=== PATIENT | female | born 1935 | race Caucasian/White ===

== ENCOUNTER 2019-12-26 13:55 | Emergency (ER) | payer OTHER ==
[2019-12-26 14:35] LABS: CHLORIDE,CL 102 mmol/L (98-107); SODIUM,NA 143 mmol/L (136-145)
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
== END 2019-12-26 16:36 | disposition home or self-care (01) ==
LOC: LL.ED 13:55
DX: Z04.1 Encounter for examination and observation following transport accident (principal); V43.52XA Car driver injured in collision with other type car in traffic accident, initial encounter
CPT/HCPCS: 36415; 70450; 71046; 80053; 85025; 85610; 99284-25

== ENCOUNTER 2021-03-02 08:09 | Observation (INO) | payer MEDICARE, BC ==
[2021-03-02 09:03] LABS: PTT,PARTIAL THROMBOPLSTIN TIME 30.3 SEC (24.5-32.8)
[2021-03-02] MEDS ORDERED: Meclizine 25 MG Tab PO ONE (09:04)
[2021-03-02] MEDS ORDERED: Ondansetron 4 MG/2 ML SDV IVPUSH ONE (09:05)
[2021-03-02 09:13] LABS: CHLORIDE,CL 105 mmol/L (98-107); SODIUM,NA 141 mmol/L (136-145)
--- NOTE | 2021-03-02 09:17 | EDM.PDOC ---
ED HPI GENERAL MEDICAL PROBLEM - General Chief Complaint: Neuro Symptoms/Deficits Stated Complaint: face, arm numbness Time Seen by Provider: 03/02/21 08:35 Source of Information: Reports: Patient History Limitations: Reports: No Limitations - History of Present Illness INITIAL COMMENTS - FREE TEXT/NARRATIVE: Pt. presents to ER with complaints of L sided upper extremity paresthesia and L sided facial paresthesia, shortness of breath, and vertigo. Pt. states that she felt well yesterday. She states that she went to [place] at 10:30 last night and felt fine. She states that she woke up at about 0200 this AM and noticed the facial numbness. She woke up this AM at 6:15 at which time she was experiencing vertigo and shortness of breath. No chest pain. Denies any increased peripheral edema. Pt. has a history of atrial fib and is anticoagulated with heparin. Rate is controlled with diltiazem CD 180mg daily. She is also on toprol XL 100mg once daily and has a history of HTN. Pt. is followed by Dr. Guthrie at cardiology and saw him recently for her atrial fib. They discussed cardioversion, but given her lengthy history of a-fib, she does not wish to undergo cardioversion. 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 Stroke code was called by nursing on arrival to ER. She had no pronator drift, speech difficulty, or evidence of L sided weakness/facial droop on arrival to ER. Pt. denies any recent illness. No nausea or vomiting. No recent upper respiratory symptoms. Pt. states that she was feeling fine and was active yesterday. She was not experiencing any of the above symptoms at all. Onset: Today Onset Date: 03/02/21 Onset Time: 02:00 Location: Reports: Face, Upper Extremity, Left Associated Symptoms: Reports: Shortness of Breath. Denies: Diaphoresis, Fever/Chills, Nausea/Vomiting - Related Data Allergies Allergy/AdvReac Type Severity Reaction Status Date / Time lisinopril Allergy Mild Cough Verified 03/02/21 08:59 amitriptyline Allergy Chest Verified 03/02/21 08:59 Tightness ciprofloxacin Allergy Rash Verified 03/02/21 08:59 sulfamethoxazole Allergy Rash Verified 03/02/21 08:59 [From Bactrim] trimethoprim [From Bactrim] Allergy Rash Verified 03/02/21 08:59 Home Meds: Home Meds Amoxicillin 250 mg PO DAILY 03/02/21 [History] Diltiazem HCl [Diltiazem 24Hr Cd] 180 mg PO DAILY 03/02/21 [History] Furosemide 20 mg PO DAILY 03/02/21 [History] Losartan Potassium 25 mg PO DAILY 03/02/21 [History] Metoprolol Succinate 100 mg PO DAILY 03/02/21 [History] Potassium Chloride 10 meq PO BID 03/02/21 [History] Warfarin [Coumadin] 2.5 mg PO SUTUTHSA@03/02/21 [History] Warfarin [Coumadin] 5 mg PO MOWEFR@03/02/21 [History] Past Medical History Cardiovascular History: Reports: Afib, CAD, Heart Failure (EF 45-50% Stress test last year showed inferolateral defect.), Hypertension, SOB on Exertion, Other (See Below) (History of mitral and aortic valve insufficiency.). Denies: Aneurysm, Angina, Arrhythmia, Automatic Implantable Cardioverter Defibrillators, Cardiomyopathy, Heart Valve Replacement, Pacemaker, PTCA, Stents, Syncope Respiratory History: Reports: None Gastrointestinal History: Reports: Cholelithiasis (S/p cholecystectomy), GERD. 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 3 years ago.) Hematologic History: Reports: Anticoagulation Therapy, B12 Deficiency. Denies: Anemia Immunologic History: Reports: None, Other (See Below) (Had J and J covid vaccination) ED ROS GENERAL - Review of Systems Review Of Systems: See Below Constitutional: Reports: No Symptoms. Denies: Fever, Chills, Malaise HEENT: Reports: Vertigo. Denies: Nosebleed, Vision Change Respiratory: Reports: Shortness of Breath Cardiovascular: Reports: Dyspnea on Exertion. Denies: Chest Pain, Edema, Orthopnea, Palpitations, PND, Syncope Endocrine: Reports: No Symptoms GI/Abdominal: Reports: No Symptoms. Denies: Black Stool, Bloody Stool, Constipation, Diarrhea, Hematemesis, Hematochezia, Melena, Nausea, Vomiting : Reports: No Symptoms Musculoskeletal: Reports: No Symptoms Skin: Reports: No Symptoms Neurological: Reports: Paresthesia (L upper extremity and L sided facial paresthesia) Psychiatric: Reports: No Symptoms Hematologic/Lymphatic: Reports: No Symptoms Immunologic: Reports: No Symptoms ED EXAM, GENERAL - Physical Exam Exam: See Below Exam Limited By: No Limitations General Appearance: Alert, WD/WN, No Apparent Distress Eye Exam: Bilateral Eye: EOMI, Nystagmus, PERRL Ears: Normal External Exam, Hearing Grossly Normal, Normal TMs, Other (both canals obstructed with cerumen) Nose: Normal Inspection, Normal Mucosa, No Blood Throat/Mouth: Normal Inspection, Normal Lips, Normal Teeth, Normal Gums, Normal Oropharynx, Normal Voice, No Airway Compromise Head: Atraumatic, Normocephalic Neck: Normal Inspection, Supple, Non-Tender, Full Range of Motion Respiratory/Chest: No Respiratory Distress, Lungs Clear, Normal Breath Sounds, No Accessory Muscle Use, Chest Non-Tender Cardiovascular: Normal Peripheral Pulses, No Edema, No JVD, No Murmur, Irregularly Irregular Peripheral Pulses: 4+: Radial (L) GI/Abdominal: Soft, Non-Tender, No Organomegaly, No Distention, No Mass (Female) Exam: Deferred Rectal (Female) Exam: Deferred Back Exam: Normal Inspection, Full Range of Motion Extremities: Normal Inspection, Normal Range of Motion, Non-Tender, No Pedal Edema, Normal Capillary Refill Neurological: Alert, Oriented, CN II-XII Intact, Normal Reflexes, Other (reports L sided upper extremity and facial numbness. No lower extremity involvement. NIH strok scale is 0.) Psychiatric: Normal Affect, Normal Mood Skin Exam: Warm, Dry, Intact, No Rash, Pallor Lymphatic: No Adenopathy #1 Interpretation Rhythm: A-Fib Comparison: No Change Course - Vital Signs Last Recorded V/S: Last Vital Signs Temp 36.9 C 03/02/21 08:19 Pulse 82 03/02/21 08:40 Resp 19 03/02/21 08:40 BP 166/80 H 03/02/21 08:40 Pulse Ox 96 03/02/21 08:40 - Orders/Labs/Meds Orders: Active Orders 24 hr Category Date Time Status EKG Documentation Completion [RC] ASDIRECTED Care 03/02/21 08:28 Active Peripheral IV Care [RC] . DIRECTED Care 03/02/21 08:27 Active CTA Head W & W/O Contrast [Ang Head] [CT] Stat Exams 03/02/21 09:00 Taken CTA Neck W & W/O Contrast [Ang Neck] [CT] Stat Exams 03/02/21 09:01 Taken Chest 1V Frontal [CR] Stat Exams 03/02/21 08:41 Taken Head wo Cont [CT] Stat Exams 03/02/21 08:11 Taken CULTURE URINE [RM] Stat Lab 03/02/21 11:15 Received PROLACTIN [REF] Stat Lab 03/02/21 08:22 Ordered Iopamidol [Isovue-370 (76%)] Med 03/02/21 13:00 Once 100 ml IVPUSH ONETIME ONE Sodium Chloride 0.9% [Saline Flush] Med 03/02/21 08:26 Active 10 ml FLUSH ASDIRECTED PRN Peripheral IV Insertion Adult [OM.PC] Routine Oth 03/02/21 08:26 Ordered Medication Orders Amoxicillin (Amoxicillin 250 Mg Cap) 250 mg PO DAILY [facility] Diltiazem HCl (Diltiazem 180 Mg Cap.Cd) 180 mg PO DAILY [facility] Furosemide (Furosemide 20 Mg Tab) 20 mg PO DAILY [facility] Ceftriaxone Sodium 1 gm/ (Sodium Chloride) 100 mls @ 200 mls/hr IV Q24H [facility] Iopamidol (Iopamidol 755 Mg/Ml 100 Ml Bottle) 100 ml IVPUSH ONETIME ONE Stop: 03/02/21 13:01 Last Admin: 03/02/21 09:37 Dose: 100 ml Documented by: BEATRICE Non-Formulary Medication (Potassium Chloride [Potassium Chloride]) 10 meq PO BID [facility] Non-Formulary Medication (Metoprolol Succinate [Metoprolol Succinate]) 100 mg PO DAILY [facility] Non-Formulary Medication (Losartan Potassium [Losartan Potassium]) 25 mg PO DAILY [facility] Sodium Chloride (Sodium Chloride 0.9% 10 Ml Syringe) 10 ml FLUSH ASDIRECTED PRN PRN Reason: Keep Vein Open Last Admin: 03/02/21 09:19 Dose: 10 ml Documented by: SHUN Warfarin Sodium (Warfarin 2.5 Mg Tab) 2.5 mg PO SUTUTHSA@08 [facility] Warfarin Sodium (Warfarin 2.5 Mg Tab) 5 mg PO MOWEFR@08 [facility] Labs: Laboratory Tests 03/02/21 03/02/21 03/02/21 Range/Units 08:22 08:22 08:22 WBC 5.8 (4.0-10.2) K/uL RBC 4.61 (3.77-5.09) M/uL Hgb 13.2 D (11.7-15.5) g/dL Hct 41.0 (34.0-46.0) % MCV 88.9 (84.0-98.0) fL MCH 28.6 (28.2-33.3) pg MCHC 32.2 (31.7-36.0) g/dL RDW 14.6 H (11.2-14.1) % Plt Count 269 (150-350) K/uL Neut % (Auto) 65.4 (45.0-80.0) % Lymph % (Auto) 25.0 (10.0-50.0) % [place] % (Auto) 6.2 (2.0-14.0) % Eos % (Auto) 2.9 (0.0-5.0) % Baso % (Auto) 0.5 (0.0-2.0) % Neut # (Auto) 3.79 (1.40-7.00) K/uL Lymph # (Auto) 1.45 (0.50-3.50) K/uL [place] # (Auto) 0.36 (0.00-1.00) K/uL Eos # (Auto) 0.17 (0.00-0.50) K/uL Baso # (Auto) 0.03 (0.00-0.20) K/uL PT 21.8 H (9.5-12.0) SEC INR 2.2 APTT 30.3 (24.5-32.8) SEC D-Dimer, Quantitative < 100 (0-400) ng/mL Sodium (136-145) mmol/L Potassium (3.5-5.1) mmol/L Chloride (98-107) mmol/L Carbon Dioxide (21.0-32.0) mmol/L BUN (7-18) mg/dL Creatinine (0.51-1.17) mg/dL Est Cr Clr Drug Dosing Estimated GFR (MDRD) mL/min Glucose (70-99) mg/dL Calcium (8.5-10.1) mg/dL Magnesium (1.8-2.4) mg/dL Total Bilirubin (0.2-1.0) mg/dL AST (15-37) U/L ALT (12-78) U/L Alkaline Phosphatase (46-116) IU/L Creatine Kinase (26-308) U/L Creatine Kinase Index (0.0-2.5) % CK-MB (CK-2) (0.00-3.60) ng/mL Troponin I (0.000-0.056) ng/mL NT-Pro-B Natriuret Pep (0-125) pg/mL Total Protein (6.4-8.2) g/dL Albumin (3.4-5.0) g/dL 03/02/21 Range/Units 08:22 WBC (4.0-10.2) K/uL RBC (3.77-5.09) M/uL Hgb (11.7-15.5) g/dL Hct (34.0-46.0) % MCV (84.0-98.0) fL MCH (28.2-33.3) pg MCHC (31.7-36.0) g/dL RDW (11.2-14.1) % Plt Count (150-350) K/uL Neut % (Auto) (45.0-80.0) % Lymph % (Auto) (10.0-50.0) % [place] % (Auto) (2.0-14.0) % Eos % (Auto) (0.0-5.0) % Baso % (Auto) (0.0-2.0) % Neut # (Auto) (1.40-7.00) K/uL Lymph # (Auto) (0.50-3.50) K/uL [place] # (Auto) (0.00-1.00) K/uL Eos # (Auto) (0.00-0.50) K/uL Baso # (Auto) (0.00-0.20) K/uL PT (9.5-12.0) SEC INR APTT (24.5-32.8) SEC D-Dimer, Quantitative (0-400) ng/mL Sodium 141 (136-145) mmol/L Potassium 4.1 (3.5-5.1) mmol/L Chloride 105 (98-107) mmol/L Carbon Dioxide 23.7 (21.0-32.0) mmol/L BUN 17 (7-18) mg/dL Creatinine 0.77 (0.51-1.17) mg/dL Est Cr Clr Drug Dosing TNP Estimated GFR (MDRD) > 60 mL/min Glucose 114 H (70-99) mg/dL Calcium 8.7 (8.5-10.1) mg/dL Magnesium 2.0 (1.8-2.4) mg/dL Total Bilirubin 1.0 (0.2-1.0) mg/dL AST 25 (15-37) U/L ALT 26 (12-78) U/L Alkaline Phosphatase 99 (46-116) IU/L Creatine Kinase 81 (26-308) U/L Creatine Kinase Index 1.2 (0.0-2.5) % CK-MB (CK-2) 1.00 (0.00-3.60) ng/mL Troponin I 0.000 (0.000-0.056) ng/mL NT-Pro-B Natriuret Pep 997 H (0-125) pg/mL Total Protein 7.6 (6.4-8.2) g/dL Albumin 4.0 (3.4-5.0) g/dL Meds: Medications Generic Name Dose Route Start Last Admin Trade Name Freq PRN Reason Stop Dose Admin Amoxicillin 250 mg 03/03/21 08:00 Amoxicillin 250 Mg Cap PO DAILY CLAUDIA Diltiazem HCl 180 mg 03/03/21 08:00 Diltiazem 180 Mg Cap.Cd PO DAILY [facility] Furosemide 20 mg 03/03/21 08:00 Furosemide 20 Mg Tab PO DAILY [facility] Ceftriaxone Sodium 1 gm/ 100 mls @ 200 mls/hr 03/02/21 11:45 Sodium Chloride IV Q24H CLAUDIA Iopamidol 100 ml 03/02/21 13:00 03/02/21 09:37 Iopamidol 755 Mg/Ml 100 Ml Bottle IVPUSH 03/02/21 13:01 100 ml ONETIME ONE Administration Non-Formulary Medication 10 meq 03/02/21 18:00 Potassium Chloride [Potassium Chloride] PO BID CLAUDIA Non-Formulary Medication 100 mg 03/03/21 08:00 Metoprolol Succinate [Metoprolol Succinate] PO DAILY CLAUDIA Non-Formulary Medication 25 mg 03/03/21 08:00 Losartan Potassium [Losartan Potassium] PO DAILY [facility] Sodium Chloride 10 ml 03/02/21 08:26 03/02/21 09:19 Sodium Chloride 0.9% 10 Ml Syringe FLUSH 10 ml ASDIRECTED PRN Administration Keep Vein Open Warfarin Sodium 2.5 mg 03/03/21 08:00 Warfarin 2.5 Mg Tab PO SUTUTHSA@08 [facility] Warfarin Sodium 5 mg 03/04/21 08:00 Warfarin 2.5 Mg Tab PO MOWEFR@08 [facility] Discontinued Medications Generic Name Dose Route Start Last Admin Trade Name Freq PRN Reason Stop Dose Admin Lactated Ringer's 1,000 mls @ 250 mls/hr 03/02/21 10:00 03/02/21 09:58 Ringers, Lactated IV 250 mls/hr ASDIRECTED [facility] Administration Iopamidol Confirm 03/02/21 09:23 03/02/21 09:58 Iopamidol 755 Mg/Ml 100 Ml Bottle Administered 03/02/21 09:24 Not Given Dose 100 ml .ROUTE .STK-MED ONE Meclizine HCl 25 mg 03/02/21 09:04 03/02/21 09:18 Meclizine 25 Mg Tab PO 03/02/21 09:05 25 mg ONETIME ONE Administration Ondansetron HCl 4 mg 03/02/21 09:05 03/02/21 09:18 Ondansetron 4 Mg/2 Ml Sdv IVPUSH 03/02/21 09:06 4 mg ONETIME ONE Administration - Radiology Interpretation Free Text/Narrative:: CT brain without contrast obtained, negative of active bleeding or other pathology. CTA head and neck obtained, no obvious vascular compromise noted. Chest x-ray interpreted by myself. +cardiomegaly. No obvious infiltrate noted. Formal interpretation pending. Departure - Departure Time of Disposition: 11:46 Disposition: Refer to Observation Clinical Impression: UTI (urinary tract infection), Vertigo - Discharge Information Sepsis Event Note (ED) - Evaluation Sepsis Screening Result: No Definite Risk - Focused Exam Vital Signs: Vital Signs Temp Pulse Resp BP Pulse Ox 03/02/21 08:40 82 19 166/80 H 96 03/02/21 08:30 83 17 184/88 H 92 L 03/02/21 08:19 36.9 C 85 16 186/101 H 94 L 03/02/21 08:15 186/108 H 94 L - Problem List Review Problem List Initiated/Reviewed/Updated: Yes - My Orders Last 24 Hours: My Active Orders 03/02/21 08:11 Head wo Cont [CT] Stat 03/02/21 08:22 PROLACTIN [REF] Stat 03/02/21 08:26 Sodium Chloride 0.9% [Saline Flush] 10 ml FLUSH ASDIRECTED PRN Peripheral IV Insertion Adult [OM.PC] Routine 03/02/21 08:27 Peripheral IV Care [RC] . DIRECTED 03/02/21 08:28 EKG Documentation Completion [RC] ASDIRECTED 03/02/21 08:41 Chest 1V Frontal [CR] Stat 03/02/21 09:00 CTA Head W & W/O Contrast [Ang Head] [CT] Stat 03/02/21 09:01 CTA Neck W & W/O Contrast [Ang Neck] [CT] Stat 03/02/21 11:15 CULTURE URINE [RM] Stat 03/02/21 13:00 Iopamidol [Isovue-370 (76%)] 100 ml IVPUSH ONETIME ONE - Assessment/Plan Last 24 Hours: My Active Orders 03/02/21 08:11 Head wo Cont [CT] Stat 03/02/21 08:22 PROLACTIN [REF] Stat 03/02/21 08:26 Sodium Chloride 0.9% [Saline Flush] 10 ml FLUSH ASDIRECTED PRN Peripheral IV Insertion Adult [OM.PC] Routine 03/02/21 08:27 Peripheral IV Care [RC] . DIRECTED 03/02/21 08:28 EKG Documentation Completion [RC] ASDIRECTED 03/02/21 08:41 Chest 1V Frontal [CR] Stat 03/02/21 09:00 CTA Head W & W/O Contrast [Ang Head] [CT] Stat 03/02/21 09:01 CTA Neck W & W/O Contrast [Ang Neck] [CT] Stat 03/02/21 11:15 CULTURE URINE [RM] Stat 03/02/21 13:00 Iopamidol [Isovue-370 (76%)] 100 ml IVPUSH ONETIME ONE Plan: Pt. will be admitted observation. Pt. indicates that she is a DNR/DNI. Pt. was given a small bolus of IV fluid following CTA of head and neck. Pt. proBNP was mildly elevated so further fluids will be discontinued. Pt. reports that she did not take her oral lasix today. We will give her 40mg IV now. Troponin will be repeated in 4 hours. She will remain on telemetry. Pt. was given oral meclizine for the vertigo. She as not experiencing significant nystagmus, so it is unclear if there is a middle ear component to the dizziness. This could possibly be being caused by the UTI. She did not have any relief with the meclizine. Pt. was started on IV rocephin for UTI. CBC, chemistry, troponin, and proBNP will be repeated in the AM.
[2021-03-02] MEDS: Sodium Chloride 0.9% 10 ML Syringe FLUSH PRN ×2 (09:19→12:25)
[2021-03-02] MEDS ORDERED: Iopamidol 755 Mg/ML 100 ML Bottle ONE (09:23)
[2021-03-02] MEDS: Iopamidol 755 Mg/ML 100 ML Bottle IVPUSH ONE ×2 (09:37→12:06)
[2021-03-02] MEDS ORDERED: Lactated Ringers 1,000 ML IV SCH (10:00)
[2021-03-02] MEDS ORDERED: Furosemide 40 MG/4 ML VIAL IVPUSH ONE (12:00)
[2021-03-02] MEDS: cefTRIAXone 1 GM in Sodium Chloride 0.9% 100 ML IV SCH (12:22)
[2021-03-02] MEDS ORDERED: Meclizine 25 MG Tab PO PRN (16:17)
[2021-03-02] MEDS ORDERED: Potassium Chloride 10 MEQ Tab.ER PO SCH (18:00)
[2021-03-03] MEDS ORDERED: Warfarin 2.5 MG Tab PO SCH (08:00)
[2021-03-03] MEDS ORDERED: Metoprolol Succinate 50 MG Tab.ER PO SCH (08:00)
[2021-03-03] MEDS ORDERED: Furosemide 20 MG Tab PO SCH (08:00)
[2021-03-03] MEDS ORDERED: Diltiazem 180 MG Cap.CD PO SCH (08:00)
[2021-03-03] MEDS ORDERED: Amoxicillin 250 MG Cap PO SCH (08:00)
[2021-03-03] MEDS ORDERED: Losartan 50 MG Tab PO SCH (08:00)
[2021-03-03] MEDS ORDERED: Potassium Chloride 10 MEQ Tab.ER PO SCH (08:00)
[2021-03-03] MEDS: cefTRIAXone 1 GM in Sodium Chloride 0.9% 100 ML IV SCH (11:07)
[2021-03-03] MEDS: Sodium Chloride 0.9% 10 ML Syringe FLUSH PRN ×2 (11:07→11:08)
--- NOTE | 2021-03-04 03:21 | PCM.DCSUM1 ---
Discharge Summary - Hospital Course Free Text/Narrative:: Pt. was admitted observation after presenting to ER with complaints of L sided facial numbness, L upper extremity numbness, and vertigo. A stroke code was called based on the patient's review of symptoms. 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 She states that the symptoms gradually improved and she has been leading a very active life with no deficits. Pt. underwent a non-contrast CT of the brain which was negative, and then a CT angiogram of the head and neck were obtained. There was no large vessel occlusion, but evidence of small vessel disease. No hypodensities were noted. Stroke neurologist was consulted and advised no acute need for intervention and advised observation. She is anticoagulated with coumadin for a-fib. She states that the facial and upper extremity numbness have improved significantly as well. During her workup, pt was found to have a UTI as well. Pt. did well overnight. She states that she is significantly less dizzy than she was when she arrived in ER. Pt. states that her appetite has been normal and she has been eating. Pt. was getting up and using the toilet on her own. Denies any shortness of breath, lightheadedness, chest pain, or palpitations with activity. Pt. has been afebrile since arrival to ER. She states that she is still not experiencing any urinary symptoms such as frequency, urgency, or dysuria. No nausea or vomiting. At time of rounding, pt. had not been evaluated by PT for vestibular therapy. Pt. is eager to be discharged but agreed to stay in the hospital until she was seen by PT and given her second dose of rocephin. Diagnosis: Stroke: No - Discharge Data Discharge Date: 03/03/21 Discharge Disposition: Home, Self-Care 01 Condition: Good - Referral to Home Health Primary Care Physician: RAFI Balderas - Discharge Diagnosis/Problem(s) (1) UTI (urinary tract infection) SNOMED Code(s): 53586145 ICD Code: N39.0 - URINARY TRACT INFECTION, SITE NOT SPECIFIED Status: Acute Qualifiers: Urinary tract infection type: acute cystitis (2) Vertigo SNOMED Code(s): 126213728 ICD Code: R42 - DIZZINESS AND GIDDINESS Status: Acute - Patient Summary/Data Consults: Consultations 03/02/21 16:16 PT Evaluation and Treatment [CONS] Routine - Discharge Plan Home Medications: Home Meds Amoxicillin 250 mg PO DAILY 03/02/21 [History] Diltiazem HCl [Diltiazem 24Hr Cd] 180 mg PO DAILY 03/02/21 [History] Furosemide 20 mg PO DAILY 03/02/21 [History] Losartan Potassium 25 mg PO DAILY 03/02/21 [History] Metoprolol Succinate 100 mg PO DAILY 03/02/21 [History] Potassium Chloride 10 meq PO DAILY 03/02/21 [History] Warfarin [Coumadin] 2.5 mg PO SUTUTHSA@03/02/21 [History] Warfarin [Coumadin] 5 mg PO MOWEFR@03/02/21 [History] Meclizine [Antivert] 25 mg PO Q6H PRN tablet 03/03/21 [Rx] Patient Handouts: Meclizine tablets or capsules, Ceftriaxone Injection, Vertigo, [id number], Urinary Tract Infection, Adult Forms: ED Department Discharge Referrals: Neal Han PA [Primary Care Provider] - - Discharge Summary/Plan Comment DC Time >30 min.: Yes Discharge Summary/Plan Comment: Pt. was discharged. She was started on Macrobid 100mg twice daily for her UTI. She received 2 doses of IV rocephin during her stay in the hospital. Continue with her current medications. Advised follow-up in clinic in 10-14 days. Pt. likely had a TIA. It is possible that this happened as a result of the UTI/increased O2 demand. She is on coumadin for atrial fib. At this point, no antiplatelet therapy is warranted as her symptoms are resolving. She is at high risk for fall and subsequent bleeding. Advised fastidious control of her hypertension/lipids if necessary. At this point, it is unclear if the dizziness has a vestibular origin, or if this was a result of the UTI, or less likely, the TIA. Advised continuing PT at this point. She can use meclizine as needed as this seemed to help. Return to ER if she has troubles speaking, walking, chest pain, shortness of breath, or other worrisome signs/symptoms. She can also call at any time if she has questions/concerns. - General Info Date of Service: 05/26/21 Functional Status: Reports: Pain Controlled - Review of Systems General: Reports: No Symptoms HEENT: Reports: No Symptoms Pulmonary: Reports: No Symptoms Cardiovascular: Reports: No Symptoms Gastrointestinal: Reports: No Symptoms Genitourinary: Reports: No Symptoms Musculoskeletal: Reports: No Symptoms Skin: Reports: No Symptoms Neurological: Reports: Dizziness Psychiatric: Reports: No Symptoms - Patient Data Vitals - Most Recent: Last Vital Signs Temp 36.8 C 03/03/21 07:09 Pulse 97 03/03/21 08:09 Resp 18 03/03/21 07:09 BP 137/82 03/03/21 08:09 Pulse Ox 91 L 03/03/21 07:09 Weight - Most Recent: 82.1 kg I&O - Last 24 hours: Intake & Output 03/03/21 03/03/21 03/04/21 14:59 22:59 06:59 Intake Total 550 Output Total 200 Balance 350 Lab Results - Last 24 hrs: Laboratory Results - last 24 hr 03/02/21 Range/Units 08:22 Prolactin 12.4 ng/mL CAT Results - Last 24 hrs: Microbiology 03/02/21 11:15 Urine Culture - Preliminary Urine, Voided Gram Negative Rods Med Orders - Current: Current Medications Discontinued Medications Amoxicillin (Amoxicillin 250 Mg Cap) 250 mg PO DAILY [facility] Last Admin: 03/03/21 08:08 Dose: 250 mg Documented by: Diltiazem HCl (Diltiazem 180 Mg Cap.Cd) 180 mg PO DAILY [facility] Last Admin: 03/03/21 08:08 Dose: 180 mg Documented by: Furosemide (Furosemide 20 Mg Tab) 20 mg PO DAILY [facility] Last Admin: 03/03/21 08:08 Dose: 20 mg Documented by: Furosemide (Furosemide 40 Mg/4 Ml Vial) 40 mg IVPUSH NOW ONE Stop: 03/02/21 12:01 Last Admin: 03/02/21 12:23 Dose: 40 mg Documented by: Lactated Ringer's (Ringers, Lactated) 1,000 mls @ 250 mls/hr IV ASDIRECTED [facility] Last Admin: 03/02/21 09:58 Dose: 250 mls/hr Documented by: Ceftriaxone Sodium 1 gm/ (Sodium Chloride) 100 mls @ 200 mls/hr IV Q24H [facility] Last Admin: 03/03/21 11:07 Dose: 200 mls/hr Documented by: Iopamidol (Iopamidol 755 Mg/Ml 100 Ml Bottle) 100 ml IVPUSH ONETIME ONE Stop: 03/02/21 13:01 Last Admin: 03/02/21 12:06 Dose: Not Given Documented by: Iopamidol (Iopamidol 755 Mg/Ml 100 Ml Bottle) Confirm Administered Dose 100 ml .ROUTE .STK-MED ONE Stop: 03/02/21 09:24 Last Admin: 03/02/21 09:58 Dose: Not Given Documented by: Losartan Potassium (Losartan 50 Mg Tab) 25 mg PO DAILY [facility] Last Admin: 03/03/21 08:08 Dose: 25 mg Documented by: Meclizine HCl (Meclizine 25 Mg Tab) 25 mg PO ONETIME ONE Stop: 03/02/21 09:05 Last Admin: 03/02/21 09:18 Dose: 25 mg Documented by: Meclizine HCl (Meclizine 25 Mg Tab) 25 mg PO Q6H PRN PRN Reason: Dizziness Last Admin: 03/02/21 17:06 Dose: 25 mg Documented by: Metoprolol Succinate (Metoprolol Succinate 50 Mg Tab.Er) 100 mg PO DAILY [facility] Last Admin: 03/03/21 08:09 Dose: 100 mg Documented by: Ondansetron HCl (Ondansetron 4 Mg/2 Ml Sdv) 4 mg IVPUSH ONETIME ONE Stop: 03/02/21 09:06 Last Admin: 03/02/21 09:18 Dose: 4 mg Documented by: Potassium Chloride (Potassium Chloride 10 Meq Tab.Er) 10 meq PO BID [facility] Last Admin: 03/02/21 17:05 Dose: Not Given Documented by: Potassium Chloride (Potassium Chloride 10 Meq Tab.Er) 10 meq PO DAILY [facility] Last Admin: 03/03/21 08:08 Dose: 10 meq Documented by: Sodium Chloride (Sodium Chloride 0.9% 10 Ml Syringe) 10 ml FLUSH ASDIRECTED PRN PRN Reason: Keep Vein Open Last Admin: 03/03/21 11:08 Dose: 10 ml Documented by: Warfarin Sodium (Warfarin 2.5 Mg Tab) 2.5 mg PO SUTUTHSA@08 [facility] Last Admin: 03/03/21 08:08 Dose: 2.5 mg Documented by: Warfarin Sodium (Warfarin 5 Mg Tab) 5 mg PO MOWEFR@08 [facility] - Exam General: Reports: Alert, Oriented HEENT: Reports: Pupils Equal, Pupils Reactive, EOMI, Mucous Membr. Moist/[place] Neck: Reports: Supple Lungs: Reports: Clear to Auscultation, Normal Respiratory Effort Cardiovascular: Reports: Regular Rate, Irregular Rhythm GI/Abdominal Exam: Soft, Non-Tender, No Distention, No Mass (Female) Exam: Deferred Rectal (Female) Exam: Deferred Extremities: Normal Inspection, Normal Range of Motion, Non-Tender, No Pedal Edema, Normal Capillary Refill Skin: Reports: Warm, Dry, Intact Neurological: Reports: No New Focal Deficit Psy/Mental Status: Reports: Alert, Normal Affect, Normal Mood
[2021-03-04] MEDS ORDERED: Warfarin 5 MG Tab PO SCH (08:00)
--- NOTE | 2021-03-05 09:34 | PCM.SN.2 ---
- Free Text/Narrative Note: Telephone consultation with the patient discussing recent urine C&S results from 03/02/2021. The patient did receive Rocephin during recent hospitalization, however was discharged on Macrobid with no sensitivity report for this antibiotic. She will discontinue her Macrobid with initiation of minocycline 100 mg p.o. twice daily x5 days, #10 with no refills. She was encouraged to follow-up with her regular provider within the next 5-7 days for repeat PT/INR and urine test, including a culture and sensitivity. Otherwise follow-up as per recent discharge instructions. Extensive precautions were given to the patient, who is in agreement with the treatment plan.
== END 2021-03-03 11:30 | disposition home or self-care (01) ==
LOC: LL.ED 08:09 → LL.MS 10:59
PROVIDERS: ADMIT Physician Assistant; ATTEND Physician Assistant
DX: R42 Dizziness and giddiness (principal); N39.0 Urinary tract infection, site not specified; R20.2 Paresthesia of skin; R06.02 Shortness of breath; R20.0 Anesthesia of skin; I48.91 Unspecified atrial fibrillation; I25.10 Atherosclerotic heart disease of native coronary artery without angina pectoris; I11.0 Hypertensive heart disease with heart failure; I50.9 Heart failure, unspecified; Z86.73 Personal history of transient ischemic attack (TIA), and cerebral infarction without residual deficits; Z88.8 Allergy status to other drugs, medicaments and biological substances; Z88.2 Allergy status to sulfonamides; Z88.1 Allergy status to other antibiotic agents; Z79.01 Long term (current) use of anticoagulants; Z79.899 Other long term (current) drug therapy
CPT/HCPCS: 36415; 70450; 70496; 70498; 71045; 80053; 81001; 82550; 82553; 83735; 83880; 84146; 84484; 85025; 85379; 85610; 85730; 87086; 87088; 87186; 93005; 96365; 96374; 96375; 96376; 97162-GP; 97530-GP; 99217; 99220; 99285-25; A9270-GY; G0378; J0696; J1940; J2405; J7120; Q9967